=== PATIENT | female | born 1945 | race Caucasian/White ===

== ENCOUNTER → 2024-10-19 | Outpatient (CLI) | payer MEDICARE, MEDICAID, SELFPAY ==
--- NOTE | 2024-10-19 13:00 | XR_ITS ---
Examination: Bone densitometry Date and time of exam:October 19, 2024 1313 hours INDICATIONS: Hysterectomy age 39, diabetic Technique: Lumbar spine and hip total bone mineralization values of an calculated. Peak reference and age match control results have been displayed. Findings: Lumbar spine total bone mineralization is0.767 gm/cm2. This is 2.5 standard deviations below peak reference. This is 0.0 standard deviations at age-matched controls. Hip total bone mineralization is 0.666 gm/cm2 This is 2.2 standard deviations below peak reference. This is 0.3 standard deviations above age-matched controls Impression: There is osteoporosis based on lumbar spine measurements. There is osteoporosis based on hip measurements
== END | disposition home or self-care (01) ==
LOC: CDIM 12:04
PROVIDERS: Referring Provider Family Medicine; Visit Provider Family Medicine
DX: M81.0 Age-related osteoporosis without current pathological fracture (principal)
CPT/HCPCS: 77080